=== PATIENT | female | born 1945 | race African-American/Black ===

== ENCOUNTER 2018-07-22 21:58 | Emergency (ER) | payer OTHER ==
[~2018-07-22] VITALS: Ht 167.6 cm; Wt 68.0 kg
[2018-07-22] MEDS ORDERED: IBUPROFEN 400MG TABLET PO ONE (23:45)
[2018-07-23 00:10] VITALS: BP 176/79
== END 2018-07-23 00:24 | disposition home or self-care (01) ==
LOC: ER 21:58
DX: M54.2 Cervicalgia (principal); R07.89 Other chest pain; I10 Essential (primary) hypertension; E11.9 Type 2 diabetes mellitus without complications; V43.62XA Car passenger injured in collision with other type car in traffic accident, initial encounter; W22.12XA Striking against or struck by front passenger side automobile airbag, initial encounter; Y93.89 Activity, other specified; Y92.488 Other paved roadways as the place of occurrence of the external cause
CPT/HCPCS: 71045; 93005; 99284